=== PATIENT | female | born 1940 | race Caucasian/White ===

== ENCOUNTER → 2019-02-15 | Outpatient (CLI) | payer OTHER ==
[~2019-02-15] MED LIST: ALDACTONE25 MG PO; ASPIR 8181 MG PO; CARAFATE 1 GM TA1 GM PO; CIPRO250 M1 PO; COREG3.125 MG PO; COZAAR 25 MG TA25 M1 PO; CRESTOR PO; CRESTOR10 MG PO; LASIX 40 MG TAB40 M2 PO; LISINOPRIL2.5 M1 PO; MELATONIN3 MG PO; NITROGLYCERIN0.4 MG SUBLING; NOHOMEMEDICATIONS; NORCO 5-325 TA1 EACH PO; NORVASC5 MG PO; PANTOPRAZOLE SO40 M1 PO; PEPCID40 MG PO; PHENAZOPYRIDIN200 M2 PO; PROZAC10 MG PO; TOPROL XL25 MG PO; TRANSDERM-SCO1 PATC1 TD
--- NOTE | 2019-02-15 17:03 | CARDNUC ---
[place] [address] CARDIAC NUCLEAR IMAGING REPORT Name: RAJESH JAIMES Room: [facility]#: [id number] Admission: 02/15/19 Attend Phys: Joseph Santos, Discharge: Date of : 42 Date of Service: 02/15/19 1702 Report #: [id number] THIS REPORT FOR: //name// APPROVED REPORT Study performed: 02/15/2019 12:30:00 Indication: CAD Patient Location: Out-Patient Stress Tech: Lenka Red Stress Nurse: Lindsay Miller RN Ht: 5 ft 1 in Wt: 150 lbs BSA: 1.67 m2 BMI: 28.33 Medical History Medical History: [place] Medications: losartan, metoprolol, spironolactone, ASA, zetia Allergies: Iodine, codeine, fluoxetine Cardiac Risk Factors: Age, HLP, HTN, tobacco use Previous Cardiac Procedures: CABG Meds Held (24 hrs): metoprolol Resting Data Rest SPECT myocardial perfusion imaging was performed in supine position 30 minutes following the intravenous injection of 10.2 mCi of Tc-99m Sestamibi. Time of rest injection: 13:00 The images were gated to evaluate regional wall motion and calculate left ventricular ejection fraction. Administration Route: IV Administration Site: Right AC Pharmacologic Stress Pharmacologic stress test was performed by injecting Regadenoson 0.4 mg IV push over 10-15 seconds immediately followed by the intravenous injection of 33.6 mCi of Tc-99m Sestamibi. Time of stress injection: 14:20 Administration Route: IV Administration Site: Right AC Heart Rate at time of stress injection: 130 bpm. Gated Stress SPECT was performed 40 minutes after stress injection. The images were gated to evaluate regional wall [place] [address] CARDIAC NUCLEAR IMAGING REPORT Name: RAJESH JAIMES Room: [facility]#: [id number] Admission: 02/15/19 Attend Phys: Joseph Santos, Discharge: Date of : 42 Date of Service: 02/15/19 1702 Report #: [id number] left ventricular ejection fraction. Prone imaging was performed. Stress Test Details Stress Test: Pharmacologic stress testing performed using 0.4 mg of regadenoson per 5 mL given IV over 10 seconds. HR Max Heart Rate (APMHR): 143 bpm Resting HR: 98 bpm Target HR (85% APMHR): 121 bpm Max HR Achieved: 130 bpm % of APMHR: 90 Recovery HR: 117 bpm BP Resting BP: 113/78 mmHg Max BP: 116/70 mmHg Recovery BP: 136/75 mmHg ECG Resting ECG: Sinus Rhythm Stress ECG: Sinus Tachycardia ST Change: None Arrhythmia: None Recovery ECG: Sinus Tachycardia Recovery ST Change: None Recovery Arrhythmia: None Clinical Reason for Termination: Completed protocol Stress Symptoms: stomach cramping, loose stool The patient tolerated Lexiscan infusion without significant symptoms. Stress ECG Conclusion The baseline 12-lead EKG shows sinus rhythm thousand Mr. T wave abnormality. EKGs during and post Lexiscan infusion show sinus rhythm and sinus tachycardia with no significant ST wave changes when compared baseline. There were no stress-induced arrhythmias. Study Quality Study: Good Artifact: No artifact Study Data At rest, the left ventricular ejection fraction was 80%.. Post stress, the left ventricular ejection was 83%.. TID = 0.65. [place] [address] CARDIAC NUCLEAR IMAGING REPORT Name: RAJESH JAIMES Room: [facility]#: [id number] Admission: 02/15/19 Attend Phys: Joseph Santos, Discharge: Date of : 42 Date of Service: 02/15/19 1702 Report #: [id number] Perfusion Normal left ventricular perfusion. Wall Motion Normal left ventricular wall motion. Nuclear Conclusion ECG Findings: negative for ischemia Clinical Findings: negative for ischemia Nuclear Findings: negative for ischemia Exercise Capacity: not assessed Left Ventricular Function: normal Risk Study: low Myocardial perfusion images show no defect to suggest infarct or ischemia. Left ventricular systolic function appears normal on gated studies. This is a low risk study. <Conclusion> The baseline 12-lead EKG shows sinus rhythm thousand Mr. T wave abnormality. EKGs during and post Lexiscan infusion show sinus rhythm and sinus tachycardia with no significant ST wave changes when compared baseline. There were no stress-induced arrhythmias. <ELECTRONICALLY SIGNED> By: Joseph Santos MD, FACC 02/15/191701 01 01 Joseph Santos MD, FACC /INF
== END ==
LOC: M.NUC 01-26 08:12
DX: I25.10 Atherosclerotic heart disease of native coronary artery without angina pectoris (principal); I10 Essential (primary) hypertension; I25.2 Old myocardial infarction; K21.9 Gastro-esophageal reflux disease without esophagitis; E78.5 Hyperlipidemia, unspecified; F32.9 Major depressive disorder, single episode, unspecified; F17.210 Nicotine dependence, cigarettes, uncomplicated; E78.00 Pure hypercholesterolemia, unspecified; Z90.49 Acquired absence of other specified parts of digestive tract; Z90.710 Acquired absence of both cervix and uterus; Z87.442 Personal history of urinary calculi; Z91.041 Radiographic dye allergy status; Z88.5 Allergy status to narcotic agent; Z88.8 Allergy status to other drugs, medicaments and biological substances; Z95.5 Presence of coronary angioplasty implant and graft

== ENCOUNTER 2019-07-10 11:18 | Emergency (ER) | payer OTHER ==
[~2019-07-10] VITALS: Ht 154.9 cm; Wt 68.0 kg
[2019-07-10] MEDS ORDERED: CENTANY30 GM TOP (11:43)
[2019-07-10] MEDS ORDERED: AUGMENTIN 875-1 EACH PO (11:43)
[2019-07-10] MEDS ORDERED: LIPITOR10 MG PO (11:48)
[2019-07-10] MEDS ORDERED: ZETIA10 MG PO (11:49)
[2019-07-10] MEDS ORDERED: WELLBUTRIN SR150 MG PO (11:49)
[2019-07-10 12:59] VITALS: BP 116/61
== END 2019-07-10 13:01 | disposition home or self-care (01) ==
LOC: M.ERS 11:18
DX: S71.112A Laceration without foreign body, left thigh, initial encounter (principal); S81.852A Open bite, left lower leg, initial encounter; I10 Essential (primary) hypertension; E78.00 Pure hypercholesterolemia, unspecified; K21.9 Gastro-esophageal reflux disease without esophagitis; F17.210 Nicotine dependence, cigarettes, uncomplicated; Z91.041 Radiographic dye allergy status; Z88.5 Allergy status to narcotic agent; Z88.8 Allergy status to other drugs, medicaments and biological substances; Z98.51 Tubal ligation status; Z90.710 Acquired absence of both cervix and uterus; Z90.49 Acquired absence of other specified parts of digestive tract; W54.0XXA Bitten by dog, initial encounter; Y93.89 Activity, other specified; Y92.89 Other specified places as the place of occurrence of the external cause; Y99.8 Other external cause status